=== PATIENT | male | born 1960 | race Two or more races ===

== ENCOUNTER 2021-03-28 09:49 | Emergency (ER) | payer OTHER ==
[~2021-03-28] VITALS: Ht 175.3 cm; Wt 127.5 kg
[2021-03-28] MEDS ORDERED: ATORVASTATIN CA80 MG PO (10:13)
[2021-03-28] MEDS ORDERED: LISINOPRIL30 MG PO (10:13)
[2021-03-28] MEDS ORDERED: GLUMETZA1000 MG PO (10:13)
[2021-03-28] MEDS ORDERED: DOLOGESIC 500-1 EACH PO (10:15)
[2021-03-28] MEDS ORDERED: PANTOPRAZOLE SO40 M2 PO (10:15)
[2021-03-28] MEDS ORDERED: CARAFATE1 GM/10 ML PO (10:15)
== END 2021-03-28 13:11 | disposition home or self-care (01) ==
LOC: ER 09:49
DX: R10.84 Generalized abdominal pain (principal); C78.7 Secondary malignant neoplasm of liver and intrahepatic bile duct; E11.9 Type 2 diabetes mellitus without complications; I10 Essential (primary) hypertension; Z79.84 Long term (current) use of oral hypoglycemic drugs